=== PATIENT | female | born 1990 | race African-American/Black ===

== ENCOUNTER 2023-12-09 10:02 | Emergency (ER) | payer MEDICAID ==
[~2023-12-09] VITALS: Ht 157.5 cm; Wt 80.3 kg
[2023-12-09 10:12] VITALS: BP 127/85; PULSE 101; RESP 16; TEMP 98.4; O2SAT 99
[2023-12-09 10:55] LABS: CHLORIDE 110 mEq/L (98-107); POTASSIUM 3.9 mEq/L (3.5-5.1); SODIUM 138 mEq/L (136-145)
[2023-12-09 10:56] LABS: CALCIUM 9.1 mg/dL (8.7-10.4); CARBON DIOXIDE 25 mEq/L (21-32)
[2023-12-09 11:01] LABS: CREATININE 0.9 mg/dL (0.6-1.0); GLUCOSE 98 mg/dL (70-105); UREA NITROGEN BLOOD 6 mg/dL (9-23)
[2023-12-09 11:17] LABS: BASOPHILS % 0.6 % (0.0-2.0); EOSINOPHILS % 1.8 % (0.0-5.0); HEMATOCRIT. 42.5 % (36.0-48.0); HEMOGLOBIN. 13.7 g/dL (12.0-16.0); LYMPHOCYTES % 24.3 % (20.0-50.0); MEAN CORPUSCULAR HEMOGLOBIN 30.8 pg (28.0-32.0); MEAN CORPUSCULAR HGB CONC 32.3 g/dL (31.0-37.0); MEAN CORPUSCULAR VOLUME 95.2 fL (81.0-99.0); MONOCYTES % 5.5 % (2.0-8.0); NEUTROPHILS % 67.8 % (40.0-76.0); PLATELET 300 x1000/uL (130-400); RED BLOOD CELL COUNT 4.46 mill/uL (4.2-5.4); RED CELL DISTRIBUTION WIDTH 14.1 % (11.6-14.6); WHITE BLOOD COUNT 9.1 x1000/uL (4.5-11.0)
[2023-12-09 11:29] LABS: CLARITY URINE CLEAR (CLEAR); COLOR URINE YELLOW (YELLOW); GLUCOSE URINE NEGATIVE (NEGATIVE); KETONES URINE NEGATIVE (NEGATIVE); LEUKOCYTE ESTERASE URINE NEGATIVE (NEGATIVE); NITRITE URINE NEGATIVE (NEGATIVE); OCCULT BLOOD URINE 2+ (NEGATIVE); PH URINE 5.5 (4.5-8.0); PROTEIN URINE NEGATIVE (NEGATIVE); SPECIFIC GRAVITY URINE 1.024 (1.005-1.030); UROBILINOGEN URINE 0.2 E.U./dL (0.2-1.0)
[2023-12-09 11:32] LABS: HCG SCREEN NEGATIVE
[2023-12-09 11:47] LABS: BACTERIA URINE 2+; SQUAMOUS EPITHELIAL CELL URINE 1+ /lpf (RARE/1+); YEAST URINE NONE SEEN
[2023-12-09] MEDS ORDERED: LIDO30CR RC (13:25)
[2023-12-09] MEDS ORDERED: NITR100C MT (14:15)
== END 2023-12-09 14:23 | disposition home or self-care (01) ==
LOC: ER 10:22
DX: K64.4 Residual hemorrhoidal skin tags (principal); R10.31 Right lower quadrant pain
CPT/HCPCS: 36415; 74176; 80048; 81003; 81025; 84703; 85025; 99284

== ENCOUNTER 2024-04-13 12:33 | Emergency (ER) | payer MEDICAID ==
[~2024-04-13] VITALS: Ht 157.5 cm; Wt 78.0 kg
[~2024-04-13 12:33] MED LIST: LIDO30CR RC; NITR100C MT
[2024-04-13 12:42] VITALS: O2SAT 100
[2024-04-13 14:04] LABS: BASOPHILS % 0.4 % (0.0-2.0); EOSINOPHILS % 1.5 % (0.0-5.0); HEMATOCRIT. 44.9 % (36.0-48.0); HEMOGLOBIN. 14.5 g/dL (12.0-16.0); LYMPHOCYTES % 27.2 % (20.0-50.0); MEAN CORPUSCULAR HEMOGLOBIN 30.8 pg (28.0-32.0); MEAN CORPUSCULAR HGB CONC 32.4 g/dL (31.0-37.0); MEAN CORPUSCULAR VOLUME 95.3 fL (81.0-99.0); MEAN PLATELET VOLUME 7.2 fl (7.4-10.4); MONOCYTES % 6.5 % (2.0-8.0); NEUTROPHILS % 64.4 % (40.0-76.0); PLATELET 308 x1000/uL (130-400); RED BLOOD CELL COUNT 4.71 mill/uL (4.2-5.4); WHITE BLOOD COUNT 9.9 x1000/uL (4.5-11.0)
[2024-04-13 14:30] LABS: CHLORIDE 106 mEq/L (98-107); POTASSIUM 3.6 mEq/L (3.5-5.1)
[2024-04-13 14:31] LABS: CARBON DIOXIDE 26 mEq/L (21-32); SODIUM 139 mEq/L (136-145)
[2024-04-13 14:32] LABS: CALCIUM 9.5 mg/dL (8.7-10.4)
[2024-04-13 14:36] LABS: CREATININE 0.9 mg/dL (0.6-1.0); GLUCOSE 84 mg/dL (70-105)
[2024-04-13 14:37] LABS: UREA NITROGEN BLOOD 10 mg/dL (9-23)
[2024-04-13 14:50] LABS: TROPONIN I HIGH SENSITIVITY < 4 ng/L (3.0-34)
[2024-04-13 16:11] LABS: CLARITY URINE TURBID (CLEAR); COLOR URINE YELLOW (YELLOW); GLUCOSE URINE NEGATIVE (NEGATIVE); KETONES URINE 2+ (NEGATIVE); LEUKOCYTE ESTERASE URINE NEGATIVE (NEGATIVE); NITRITE URINE NEGATIVE (NEGATIVE); OCCULT BLOOD URINE 3+ (NEGATIVE); PH URINE 5.5 (4.5-8.0); PROTEIN URINE TRACE (NEGATIVE); SPECIFIC GRAVITY URINE 1.027 (1.005-1.030)
[2024-04-13 16:34] LABS: BACTERIA URINE 3+; SQUAMOUS EPITHELIAL CELL URINE 2+ /lpf (RARE/1+); WBC URINE 0-2 /hpf (0-2)
[2024-04-13] MEDS ORDERED: LACT1CAP78 MT (17:05)
[2024-04-13] MEDS ORDERED: SULF1TAB48 MT (17:05)
[2024-04-13] MEDS ORDERED: FAMO40TA70 MT (17:05)
[2024-04-13] MEDS: IOHEXOL-350 100 ML BOTTLE ONE (17:16)
[2024-04-13 17:21] VITALS: BP 137/91; PULSE 61; RESP 16; TEMP 36.78072; O2SAT 100
[2024-04-13 17:38] LABS: HCG SCREEN NEGATIVE
[2024-04-13 17:46] LABS: ALANINE AMINOTRANSFERASE 7 IU/L (10-49); ALBUMIN 4.6 g/dL (3.2-4.8); ASPARTATE AMINOTRANSFERASE 16 IU/L (<34); BILIRUBIN DIRECT 0.3 mg/dL (<=3.0); PHOSPHORUS 2.6 mg/dL (2.5-4.9); PROTEIN TOTAL 7.7 g/dL (6.0-8.3)
[2024-04-13 17:48] LABS: T4 FREE 1.38 ng/dL (0.89-1.76); THYROID STIMULATING HORMONE 2.78 uIU/mL (0.55-4.78)
[2024-04-13] MEDS ORDERED: IOHEXOL-350 100 ML BOTTLE ONE (23:29)
== END 2024-04-13 17:24 | disposition home or self-care (01) ==
LOC: ER 12:33
DX: R07.9 Chest pain, unspecified (principal); Z98.890 Other specified postprocedural states
CPT/HCPCS: 80076; 80048; 81003; 81025; 84703; 84439; 83690; 83735; 84100; 84443; 85025; 85379; 84484; 36415; 74174; 71045; 71275; 70450; 93005; 99285; Q9967; Z7610 ×2

== ENCOUNTER 2024-04-16 20:47 | Emergency (ER) | payer MEDICAID ==
[~2024-04-16] VITALS: Ht 167.6 cm; Wt 79.0 kg
[~2024-04-16 20:47] MED LIST changes: +FAMO40TA70 MT; +LACT1CAP78 MT; +SULF1TAB48 MT
[2024-04-16 20:50] VITALS: BP 120/76; PULSE 87; RESP 18; O2SAT 99
[2024-04-16 22:54] VITALS: TEMP 98
[2024-04-16] MEDS: ACETAMINOPHEN 325MG TABLET PO ONE (22:54)
[2024-04-16] MEDS: ONDANSETRON 4MG ODT PO ONE (22:54)
[2024-04-17 00:47] LABS: BASOPHILS % 0.5 % (0.0-2.0); EOSINOPHILS % 1.6 % (0.0-5.0); HEMATOCRIT. 42.1 % (36.0-48.0); HEMOGLOBIN. 13.8 g/dL (12.0-16.0); LYMPHOCYTES % 29.5 % (20.0-50.0); MEAN CORPUSCULAR HGB CONC 32.7 g/dL (31.0-37.0); MEAN CORPUSCULAR VOLUME 94.6 fL (81.0-99.0); MEAN PLATELET VOLUME 7.5 fl (7.4-10.4); MONOCYTES % 6.2 % (2.0-8.0); NEUTROPHILS % 62.2 % (40.0-76.0); PLATELET 261 x1000/uL (130-400); RED BLOOD CELL COUNT 4.45 mill/uL (4.2-5.4); RED CELL DISTRIBUTION WIDTH 13.5 % (11.6-14.6); WHITE BLOOD COUNT 11.8 x1000/uL (4.5-11.0)
[2024-04-17 00:59] LABS: CHLORIDE 108 mEq/L (98-107); POTASSIUM 4.2 mEq/L (3.5-5.1); SODIUM 137 mEq/L (136-145)
[2024-04-17 01:00] LABS: CALCIUM 9.5 mg/dL (8.7-10.4); CARBON DIOXIDE 20 mEq/L (21-32)
[2024-04-17 01:05] LABS: CREATININE 1.1 mg/dL (0.6-1.0); GLUCOSE 92 mg/dL (70-105); UREA NITROGEN BLOOD 8 mg/dL (9-23)
[2024-04-17 01:07] LABS: ALANINE AMINOTRANSFERASE 8 IU/L (10-49); ALBUMIN 4.3 g/dL (3.2-4.8); ASPARTATE AMINOTRANSFERASE 18 IU/L (<34); BILIRUBIN DIRECT 0.1 mg/dL (<=3.0)
[2024-04-17 01:08] LABS: BILIRUBIN TOTAL 0.5 mg/dL (0.1-1.0); PROTEIN TOTAL 7.3 g/dL (6.0-8.3)
[2024-04-17 01:49] LABS: PROTHROMBIN TIME 11.4 sec (9.6-11.0)
[2024-04-17 03:03] LABS: CLARITY URINE CLEAR (CLEAR); COLOR URINE YELLOW (YELLOW); GLUCOSE URINE NEGATIVE (NEGATIVE); KETONES URINE 2+ (NEGATIVE); LEUKOCYTE ESTERASE URINE NEGATIVE (NEGATIVE); NITRITE URINE NEGATIVE (NEGATIVE); OCCULT BLOOD URINE 1+ (NEGATIVE); PROTEIN URINE NEGATIVE (NEGATIVE); SPECIFIC GRAVITY URINE 1.025 (1.005-1.030); UROBILINOGEN URINE 0.2 E.U./dL (0.2-1.0)
[2024-04-17] MEDS ORDERED: MAG355OR21 MT (04:19)
[2024-04-17] MEDS ORDERED: ACET-2708 MT (04:19)
[2024-04-17] MEDS ORDERED: ONDA4TAB50 MT (04:19)
[2024-04-17 04:32] LABS: BACTERIA URINE 1+; RBC URINE 0-2 /hpf (0-2); SQUAMOUS EPITHELIAL CELL URINE 1+ /lpf (RARE/1+); WBC URINE 0-2 /hpf (0-2)
== END 2024-04-17 05:04 | disposition home or self-care (01) ==
LOC: ER 20:47
DX: R10.819 Abdominal tenderness, unspecified site (principal); R42 Dizziness and giddiness; Z87.440 Personal history of urinary (tract) infections; Z79.2 Long term (current) use of antibiotics
CPT/HCPCS: 99284; 36415; 74176; 80076; 80048; 81003; 83690; 85025; 85610; Q0162

== ENCOUNTER 2024-04-17 21:19 | Emergency (ER) | payer MEDICAID, OTHER ==
[~2024-04-17] VITALS: Ht 167.6 cm; Wt 76.0 kg
[~2024-04-17 21:19] MED LIST changes: +ACET-2708 MT; +MAG355OR21 MT; +ONDA4TAB50 MT
[2024-04-17 21:48] VITALS: O2SAT 99
[2024-04-17 22:04] VITALS: BP 136/87; PULSE 83; RESP 18; TEMP 98.4; O2SAT 99
== END 2024-04-18 00:25 | disposition home or self-care (01) ==
LOC: ER 21:19
DX: K64.4 Residual hemorrhoidal skin tags (principal); Z79.899 Other long term (current) drug therapy
CPT/HCPCS: 99281

== ENCOUNTER 2024-04-19 20:31 | Emergency (ER) | payer MEDICAID, OTHER ==
[~2024-04-19] VITALS: Ht 177.8 cm; Wt 80.0 kg
[2024-04-19 20:35] VITALS: TEMP 98.6; O2SAT 100
[2024-04-19 23:58] LABS: BASOPHILS % 0.6 % (0.0-2.0); EOSINOPHILS % 0.8 % (0.0-5.0); HEMATOCRIT. 46.2 % (36.0-48.0); HEMOGLOBIN. 15.3 g/dL (12.0-16.0); LYMPHOCYTES % 25.6 % (20.0-50.0); MEAN CORPUSCULAR HEMOGLOBIN 31.1 pg (28.0-32.0); MEAN CORPUSCULAR VOLUME 94.3 fL (81.0-99.0); MEAN PLATELET VOLUME 7.1 fl (7.4-10.4); MONOCYTES % 4.8 % (2.0-8.0); NEUTROPHILS % 68.2 % (40.0-76.0); PLATELET 318 x1000/uL (130-400); RED CELL DISTRIBUTION WIDTH 13.6 % (11.6-14.6); WHITE BLOOD COUNT 11.2 x1000/uL (4.5-11.0)
[2024-04-20 00:08] LABS: CHLORIDE 109 mEq/L (98-107); POTASSIUM 4.2 mEq/L (3.5-5.1); SODIUM 141 mEq/L (136-145)
[2024-04-20 00:09] LABS: CARBON DIOXIDE 24 mEq/L (21-32)
[2024-04-20 00:14] LABS: GLUCOSE 117 mg/dL (70-105); UREA NITROGEN BLOOD 11 mg/dL (9-23)
[2024-04-20 00:16] LABS: ALANINE AMINOTRANSFERASE 15 IU/L (10-49); ALBUMIN 4.7 g/dL (3.2-4.8); ASPARTATE AMINOTRANSFERASE 20 IU/L (<34); BILIRUBIN DIRECT 0.3 mg/dL (<=3.0); BILIRUBIN TOTAL 0.9 mg/dL (0.1-1.0); PROTEIN TOTAL 7.9 g/dL (6.0-8.3)
[2024-04-20 00:31] LABS: HCG SCREEN NEGATIVE
[2024-04-20 01:41] VITALS: BP 174/105; PULSE 115; RESP 20
[2024-04-20] MEDS: ONDANSETRON HCL 4MG/2ML INJ IM ONE (01:41)
[2024-04-20] MEDS: KETOROLAC 30MG/ML VIAL IM STA (01:41)
[2024-04-20] MEDS: METOCLOPRAMIDE HCL 10MG/2ML VIAL IM ONE (01:41)
[2024-04-20 03:53] LABS: CLARITY URINE TURBID (CLEAR); COLOR URINE DARK YELLOW (YELLOW); GLUCOSE URINE NEGATIVE (NEGATIVE); KETONES URINE TRACE (NEGATIVE); LEUKOCYTE ESTERASE URINE 1+ (NEGATIVE); NITRITE URINE NEGATIVE (NEGATIVE); OCCULT BLOOD URINE 2+ (NEGATIVE); PH URINE 5.5 (4.5-8.0); PROTEIN URINE 1+ (NEGATIVE); SPECIFIC GRAVITY URINE 1.036 (1.005-1.030)
[2024-04-20 04:17] LABS: SQUAMOUS EPITHELIAL CELL URINE 3+ /lpf (RARE/1+)
[2024-04-20 04:18] LABS: *AMPHETAMINES SCREEN URINE NEGATIVE (NEGATIVE); *BARBITURATES SCREEN URINE NEGATIVE (NEGATIVE); *BENZODIAZEPINES SCREEN URINE NEGATIVE (NEGATIVE); *COCAINE SCREEN URINE NEGATIVE (NEGATIVE); CANNABINOID URINE SCREEN PRESUMPTIVE POSITIVE (NEGATIVE); ECSTASY MDMA SCREEN URINE NEGATIVE (NEGATIVE); METHADONE URINE SCREEN NEGATIVE (NEGATIVE); OPIATES URINE SCREEN NEGATIVE (NEGATIVE); PHENCYCLIDINE URINE SCREEN NEGATIVE (NEGATIVE)
[2024-04-20 04:21] LABS: BACTERIA URINE 2+
== END 2024-04-20 04:34 | disposition left against medical advice (07) ==
LOC: ER 20:31
DX: R42 Dizziness and giddiness (principal); R10.9 Unspecified abdominal pain; R11.0 Nausea; Z79.899 Other long term (current) drug therapy; Z98.890 Other specified postprocedural states; Z87.19 Personal history of other diseases of the digestive system
CPT/HCPCS: 99284; 80076; 80048; 81025; 84703; 83690; 85025; 36415; 93005; 80305; 96372; 81003; J1885; J2765; J2405

== ENCOUNTER 2024-05-01 10:16 | Emergency (ER) | payer MEDICAID, OTHER ==
[~2024-05-01] VITALS: Ht 162.6 cm; Wt 75.0 kg
[2024-05-01 10:23] VITALS: O2SAT 100
[2024-05-01] MEDS ORDERED: AMLODIPINE 10MG TABLET PO ONE (11:30)
[2024-05-01 11:45] LABS: BASOPHILS % 0.3 % (0.0-2.0); EOSINOPHILS % 0.5 % (0.0-5.0); HEMATOCRIT. 45.4 % (36.0-48.0); HEMOGLOBIN. 14.6 g/dL (12.0-16.0); LYMPHOCYTES % 13.4 % (20.0-50.0); MEAN CORPUSCULAR HEMOGLOBIN 30.3 pg (28.0-32.0); MEAN CORPUSCULAR HGB CONC 32.2 g/dL (31.0-37.0); MEAN CORPUSCULAR VOLUME 94.1 fL (81.0-99.0); MEAN PLATELET VOLUME 6.9 fl (7.4-10.4); MONOCYTES % 4.5 % (2.0-8.0); NEUTROPHILS % 81.3 % (40.0-76.0); PLATELET 332 x1000/uL (130-400); RED BLOOD CELL COUNT 4.83 mill/uL (4.2-5.4); RED CELL DISTRIBUTION WIDTH 13.6 % (11.6-14.6); WHITE BLOOD COUNT 12.5 x1000/uL (4.5-11.0)
[2024-05-01 11:51] LABS: CHLORIDE 108 mEq/L (98-107); POTASSIUM 3.7 mEq/L (3.5-5.1); SODIUM 141 mEq/L (136-145)
[2024-05-01 11:52] LABS: CALCIUM 9.8 mg/dL (8.7-10.4); CARBON DIOXIDE 24 mEq/L (21-32)
[2024-05-01 11:57] LABS: CREATININE 0.9 mg/dL (0.6-1.0); GLUCOSE 109 mg/dL (70-105); PROTHROMBIN TIME 10.9 sec (9.6-11.0); UREA NITROGEN BLOOD 10 mg/dL (9-23)
[2024-05-01] MEDS ORDERED: IBUP-1525 MT (15:02)
[2024-05-01] MEDS ORDERED: GABA-534 MT (15:02)
[2024-05-01] MEDS ORDERED: TOPUD MT (15:02)
[2024-05-01] MEDS ORDERED: ACET-2708 MT (15:02)
[2024-05-01 15:57] VITALS: BP 136/77; PULSE 98; RESP 16; TEMP 36.89184; O2SAT 100
[2024-05-01] MEDS: GABAPENTIN 400MG CAPSULE PO SCH (15:59)
[2024-05-01] MEDS: OXYCODONE HCL/ACETAMINOPHEN 5/325MG TABLET PO ONE (15:59)
[2024-05-01] MEDS: AMLODIPINE 5MG TABLET PO NR (16:00)
== END 2024-05-01 15:55 | disposition home or self-care (01) ==
LOC: ER 10:27
DX: R51.9 Headache, unspecified (principal); R68.84 Jaw pain; Z79.899 Other long term (current) drug therapy; Z98.890 Other specified postprocedural states
CPT/HCPCS: 36415; 80048; 85025; 99284

== ENCOUNTER 2024-05-18 21:22 | Emergency (ER) | payer MEDICAID ==
[~2024-05-18] VITALS: Ht 157.5 cm; Wt 70.0 kg
[~2024-05-18 21:22] MED LIST changes: +GABA-534 MT; +IBUP-1525 MT; +TOPUD MT
[2024-05-18 21:28] VITALS: O2SAT 98
[2024-05-18 21:51] VITALS: BP 151/96; PULSE 82; RESP 18; TEMP 98; O2SAT 100
== END 2024-05-18 23:59 | disposition home or self-care (01) ==
LOC: ER 21:22
DX: H92.02 Otalgia, left ear (principal); G89.29 Other chronic pain; Z79.1 Long term (current) use of non-steroidal anti-inflammatories (NSAID); Z79.899 Other long term (current) drug therapy
CPT/HCPCS: 99281

== ENCOUNTER 2024-05-19 19:12 | Emergency (ER) | payer MEDICAID ==
[~2024-05-19] VITALS: Ht 165.1 cm; Wt 79.0 kg
[2024-05-19 19:21] VITALS: BP 140/82; PULSE 90; RESP 18; TEMP 98.2; O2SAT 98
[2024-05-19] MEDS ORDERED: CYCLOBENZAPRINE 10MG TABLET PO ONE (23:15)
== END 2024-05-20 04:06 | disposition left against medical advice (07) ==
LOC: ER 19:12
DX: R20.0 Anesthesia of skin (principal); Z79.1 Long term (current) use of non-steroidal anti-inflammatories (NSAID)
CPT/HCPCS: 99283

== ENCOUNTER 2025-04-11 14:41 | Emergency (ER) | payer MEDICAID ==
[~2025-04-11] VITALS: Ht 167.6 cm; Wt 91.0 kg
[2025-04-11 14:50] VITALS: O2SAT 100
[2025-04-11 15:28] LABS: BASOPHILS % 0.6 % (0.0-2.0); EOSINOPHILS % 1.0 % (0.0-5.0); HEMATOCRIT. 40.2 % (36.0-48.0); HEMOGLOBIN. 13.2 g/dL (12.0-16.0); LYMPHOCYTES % 25.9 % (20.0-50.0); MEAN PLATELET VOLUME 7.1 fl (7.4-10.4); MONOCYTES % 6.7 % (2.0-8.0); NEUTROPHILS % 65.8 % (40.0-76.0); PLATELET 321 x1000/uL (130-400); RED BLOOD CELL COUNT 4.42 mill/uL (4.2-5.4); RED CELL DISTRIBUTION WIDTH 13.4 % (11.6-14.6)
[2025-04-11 15:39] LABS: CREATININE 0.9 mg/dL (0.6-1.0); UREA NITROGEN BLOOD 9 mg/dL (9-23)
[2025-04-11 15:41] LABS: TROPONIN I HIGH SENSITIVITY < 4 ng/L (3.0-34)
[2025-04-11 18:31] VITALS: BP 114/76; PULSE 77; RESP 12; TEMP 36.8; O2SAT 98
== END 2025-04-11 18:33 | disposition home or self-care (01) ==
LOC: ER 14:41
DX: R00.2 Palpitations (principal); Z98.890 Other specified postprocedural states; Z79.899 Other long term (current) drug therapy
CPT/HCPCS: 36415; 71045; 80048; 84484; 85025; 93005; 99285

== ENCOUNTER 2025-04-28 15:01 | Emergency (ER) | payer MEDICAID ==
[~2025-04-28] VITALS: Ht 157.5 cm; Wt 90.0 kg
[2025-04-28 15:02] VITALS: O2SAT 99
[2025-04-28 15:12] VITALS: BP 142/82; PULSE 74; RESP 18; TEMP 36.9; O2SAT 100
[2025-04-28 16:00] VITALS: TEMP 98.4
[2025-04-28] MEDS: ACETAMINOPHEN 500MG TABLET PO ONE (16:00)
[2025-04-28 16:16] LABS: CLARITY URINE CLEAR (CLEAR); COLOR URINE YELLOW (YELLOW); GLUCOSE URINE NEGATIVE (NEGATIVE); KETONES URINE NEGATIVE (NEGATIVE); LEUKOCYTE ESTERASE URINE NEGATIVE (NEGATIVE); NITRITE URINE NEGATIVE (NEGATIVE); OCCULT BLOOD URINE 2+ (NEGATIVE); PH URINE 5.0 (4.5-8.0); PROTEIN URINE NEGATIVE (NEGATIVE); SPECIFIC GRAVITY URINE 1.017 (1.005-1.030); UROBILINOGEN URINE 0.2 E.U./dL (0.2-1.0)
[2025-04-28 16:22] LABS: BASOPHILS % 0.6 % (0.0-2.0); EOSINOPHILS % 1.0 % (0.0-5.0); HEMATOCRIT. 38.7 % (36.0-48.0); HEMOGLOBIN. 12.9 g/dL (12.0-16.0); LYMPHOCYTES % 22.0 % (20.0-50.0); MEAN PLATELET VOLUME 7.0 fl (7.4-10.4); MONOCYTES % 5.7 % (2.0-8.0); NEUTROPHILS % 70.7 % (40.0-76.0); PLATELET 354 x1000/uL (130-400); RED BLOOD CELL COUNT 4.26 mill/uL (4.2-5.4); RED CELL DISTRIBUTION WIDTH 13.3 % (11.6-14.6)
[2025-04-28] MEDS ORDERED: ACET-2708 MT (16:41)
[2025-04-28 16:59] LABS: CREATININE 0.9 mg/dL (0.6-1.0); TROPONIN I HIGH SENSITIVITY < 4 ng/L (3.0-34)
[2025-04-28 17:00] LABS: PROTEIN TOTAL 7.8 g/dL (6.0-8.3); UREA NITROGEN BLOOD 5 mg/dL (9-23)
[2025-04-28 17:01] LABS: ASPARTATE AMINOTRANSFERASE 18 IU/L (<34)
[2025-04-28 17:02] LABS: BILIRUBIN DIRECT 0.2 mg/dL (<=3.0); BILIRUBIN TOTAL 0.6 mg/dL (0.1-1.0)
[2025-04-28 17:10] LABS: HCG SCREEN NEGATIVE
[2025-04-28 17:39] LABS: SQUAMOUS EPITHELIAL CELL URINE FEW /lpf (RARE/1+); WBC URINE 0-2 /hpf (0-2)
[2025-04-28 17:40] LABS: BACTERIA URINE 3+
== END 2025-04-28 17:01 | disposition home or self-care (01) ==
LOC: ER 15:01
DX: M94.0 Chondrocostal junction syndrome [Tietze] (principal); R06.02 Shortness of breath; Z79.899 Other long term (current) drug therapy; Z79.1 Long term (current) use of non-steroidal anti-inflammatories (NSAID); Z98.890 Other specified postprocedural states
CPT/HCPCS: 36415; 71045; 80048; 80076; 81003; 83735; 83880; 84484; 84703; 85025; 93005; 99285